=== PATIENT | female | born 1955 | race Caucasian/White ===

== ENCOUNTER 2018-12-28 06:00 | Day surgery (SDC) | payer MEDICARE, OTHER ==
[~2018-12-28] VITALS: Ht 170.2 cm; Wt 131.1 kg
[~2018-12-28 06:00] MED LIST: ACETAMINOPHEN500 MG PO; ATENOLOL25 MG PO; CALCIUM 500 +1 EAC2 PO; CALCIUM CITRAT250 MG PO; CENTRUM SILVER1 EAC3 PO; CLONAZEPAM1 MG PO; GABAPENTIN300 MG PO; HYZAAR 100-12.1 EACH PO; IBUPROFEN200 MG PO; IBUPROFEN800 MG PO; IMODIUM A-D2 M2 PO; LOPERAMIDE2 MG PO; NORCO 5-325 TA1 EACH PO; NYSTATIN15 GM TOP; OSTEO BI-FLEX1 EAC2 PO; PAROXETINE HCL20 MG PO; PAXIL30 MG PO; RISPERIDONE2 MG PO; TYLENOL325 MG PO
--- NOTE | 2018-12-28 08:25 | NUR ---
12/28/18 0829 Phuong Melgar 0856 PT ARRIVED TO PACU ON RA, RESP EVEN AND UNLABORED. PT WAKES EASILY TO VERBAL STIMULI AND DENIES PAIN AND REPORTS SMALL AMOUNT OF NAUSEA. PT RESTING IN LEFT SIDE AND FALLS ASLEEP EASILY. VSS.
--- NOTE | 2018-12-28 10:56 | NUR ---
I HAD JUST A MOMENT WITH PT BEFORE OR STAFF CAME FOR PT. GAVE ENCOURAGEMENT, AND A BLESSING. WILL FOLLLOW NEEDED
--- NOTE | 2018-12-28 12:19 | OR ---
[facility] [address] [place], [place] [address] Signed DATE OF OPERATION: 12/28/2018 SURGEON: Elizabeth Garcias MD PREOPERATIVE DIAGNOSIS: Change in bowel habits with diarrhea. POSTOPERATIVE DIAGNOSES: 1. Bmmb-vz-hxtzggtn diffuse gastritis. 2. Shallow antral gastric ulcer. 3. Tlspt-ur-zvexnvdm-sized hiatal hernia. 4. Minimal sigmoid diverticulosis. PROCEDURES: 1. EGD with CLOtest and biopsies of the duodenum, pyloric bulb, antrum and GE junction. 2. Colonoscopy with cold biopsies of the terminal ileum in the colon. ESTIMATED BLOOD LOSS: None. INDICATIONS: Yelena is a 63-year-old, obese female, asked to see me for upper and lower endoscopy. She has had a change in bowel habits with diarrhea over the last 6 months or so. She said it is at least 2-3 days a week and usually in the mornings. She is not sure what makes it better or worse. She cannot remember if she had a barium enema in the past or a colonoscopy. To her knowledge, there is no family history of colon cancer or polyps. No family history of inflammatory bowel disease. In the office, I gave her pamphlets on both upper and lower endoscopy. We reviewed that with Yelena and her caregiver. They understand the nature of the test along with the risks including, but not limited to gas, bloating, crampy abdominal pain, bleeding, perforation requiring surgery, and missed diagnosis. In addition, because of Yelena's very full face, very thick neck and heavy chest, we asked that an anesthesia provider help us with increased monitoring sedation with propofol. She had expressed understanding and wished to proceed. PROCEDURE NOTE: Yelena was taken into our endoscopy suite and placed in the supine semi-recumbent position. The posterior oropharynx was anesthetized with lidocaine spray. A bite block was utilized for the case. She was given IV sedation with propofol per our nurse pressure control supervisor. The adult gastroscope was then introduced and advanced out into the third portion of the duodenum under direct visualization of the camera without difficulty. Electronically Signed By: ELIZABETH GARCIAS MD 12/28/18 1219 PATIENT NAME: YELENA GLEZ OPERATIVE REPORT DATE OF : 55 REPORT #: [id number] PHYSICIAN: ELIZABETH GARCIAS MD PCP: RIGOBERTO BAE MD REPORT IS CONFIDENTIAL AND NOT TO BE RELEASED WITHOUT AUTHORIZATION [facility] [address] [place], [place] [address] Signed The duodenum and pyloric channel appeared unremarkable. We took a biopsy of the duodenum and the pyloric bulb for pathologic review. However, the stomach showed mild diffuse erythematous changes consistent with mild gastritis. She has just a very small shallow antral ulcer right next to the opening from the antrum into the pyloric polyp. We have taken biopsies from the antrum for pathologic review as well as CLOtest. The incisura, body and fundus of the stomach were unremarkable. Upon retroflexion of scope, she does have a coujg-yd-eqjqjzue-sized hiatal hernia. There were no gastric or esophageal varices. The scope was withdrawn up through the area of the GE junction, which was compliant without stricture. She had minimal disruption to the Z-line. We went ahead and took a biopsy at the edge of the Z-line for pathologic review. There was no Doherty's mucosa. The distal, middle and upper esophagus were unremarkable. After this, the gas was suctioned out and the gastroscope removed. Yelena tolerated procedure quite well. Yelena was then rotated into the left lateral decubitus position. She was maintained on IV sedation with propofol per our nurse pressure control supervisor. A digital rectal exam was performed and this was unremarkable. The adult colonoscope was introduced and advanced all around into the cecum under direct visualization of camera without difficulty. Her prep was good. We could easily see the appendiceal orifice and the ileocecal valve. We turned the camera and went up into the terminal ileum probably 15 cm. It looked quite healthy to us. We took several biopsies of the terminal ileum for pathologic review. We had taken pictures throughout for photodocumentation. The scope was then slowly withdrawn. We took several random biopsies throughout the colon for pathologic review. However, there were no inflammatory changes visibly noted. She did have just a few sigmoid diverticula. They were moderate in size, few in number, and scattered about. The rectum was unremarkable. Upon retroflexion of the scope, there was no additional pathology noted above the anal canal. After this, the gas was suctioned out and colonoscope removed. Yelena tolerated procedure quite well. RECOMMENDATIONS: I will see Yelena back in my office in 7 to 14 days to review her results. MD ANAT Haro/KODYL /[id number] Electronically Signed By: ELIZABETH GARCIAS MD 12/28/18 1219 PATIENT NAME: YELENA GLEZ [facility] OPERATIVE REPORT DATE OF : 55 REPORT #: [id number] PHYSICIAN: ELIZABETH GARCIAS MD PCP: RIGOBERTO BAE MD REPORT IS CONFIDENTIAL AND NOT TO BE RELEASED WITHOUT AUTHORIZATION [facility] [address] [place], [place] [address] Signed cc: MD Elizabeth Menchaca MD Copies: RIGOBERTO BAE DMD, ANDREW L MD ~ Electronically Signed By: ELIZABETH GARCIAS MD 12/28/18 1219 PATIENT NAME: YELENA GLEZ OPERATIVE REPORT DATE OF : 55 REPORT #: [id number] PHYSICIAN: ELIZABETH GARCIAS MD PCP: RIGOBERTO BAE MD REPORT IS CONFIDENTIAL AND NOT TO BE RELEASED WITHOUT AUTHORIZATION
--- NOTE | 2018-12-29 15:32 | PATH ---
[facility] [address] [place], [place] [address] Signed SPECIMEN(S): A DUODENUM NOS SPECIMEN(S): B DUODENUM BULB SPECIMEN(S): C AMTRUM/PYLORUS SPECIMEN(S): D GE JUNCTION SPECIMEN(S): E TERMINAL ILEUM SPECIMEN(S): F COLON SPECIMEN SOURCE: A. DUODENUM NOS B. DUODENUM BULB C. AMTRUM/PYLORUS D. GE JUNCTION E. TERMINAL ILEUM F. COLON CLINICAL HISTORY: Diarrhea. MICROSCOPIC DESCRIPTION: Histologic sections of all submitted blocks are examined by light microscopy. These findings, together with the gross examination, support the pathologic diagnosis. D. Sections reveal a biopsy of esophageal mucosa composed of both glandular and squamous mucosa. Squamous mucosa has a prominent basal cell layer and elongated rete ridges. A rare intraepithelial lymphocyte is seen. Intraepithelial eosinophils are not a feature. Glandular mucosa has an intact surface and has retained mucus-secreting ability. The lamina propria is mildly expanded by a population of plasma cells, lymphocytes and infrequent eosinophils. No acute inflammatory cells or goblet cells are seen. There is no evidence of malignancy or atypia. F. Sections reveal biopsies of colonic mucosa. The epithelial surface is intact and has retained mucus-secreting ability. The basement membrane is not thickened. Glands are simple and tubular and reach all the way to the muscularis mucosae. The lamina propria is not expanded and contains a few plasma cells, lymphocytes and infrequent eosinophils. No acute inflammatory cells, excess intraepithelial lymphocytes, crypt abscesses, areas of fibrosis or granulomas are seen. There is no evidence of malignancy or atypia. LJA:glc PATIENT NAME: JASEN GLEZ PATHOLOGY DATE OF : 55 REPORT #: [id number] PHYSICIAN: BRANDON ISABEL PCP: RIGOBERTO BAE MD REPORT IS CONFIDENTIAL AND NOT TO BE RELEASED WITHOUT AUTHORIZATION [facility] [address] [place], [place] [address] Signed FINAL PATHOLOGIC DIAGNOSIS: A. Mucosa, duodenum, not otherwise specified, biopsy: - Duodenal mucosa with normal villous architecture, no microscopic pathologic diagnosis. B. Mucosa, duodenal bulb, biopsy: - Duodenal mucosa with normal villous architecture; no microscopic pathologic diagnosis. C. Mucosa, antrum, biopsy: - Mild inactive chronic gastritis. - Negative for the presence of bacteria, morphologically consistent with Helicobacter on HE stained sections (see Comment). D. Mucosa, gastroesophageal junction, biopsy: - Mild chronic esophagitis with features consistent with reflux. E. Mucosa, terminal ileum, biopsy: - Small intestinal mucosa with normal villous architecture; no microscopic pathologic diagnosis. F. Mucosa, colon, biopsy: - No microscopic pathologic diagnosis. COMMENT: The patient had a JACOBY test performed reported as negative in the [facility] database. LJA:glc:C2NR GROSS DESCRIPTION: Six specimens are received in six containers, labeled "JK." A. The specimen, labeled "JK, duodenal biopsy," is received in formalin and consists of a single 0.2 cm bryson-brown tissue fragment. Specimen is entirely submitted in cassette (A1). B. The specimen, labeled "JK, duodenal bulb biopsy," is received in formalin and consists of a single 0.3 cm bryson tissue fragment. Specimen is entirely submitted in cassette (B1). C. The specimen, labeled "JK, antrum biopsy," is received in formalin and consists of a single 0.3 cm bryson-brown tissue fragment. Specimen is entirely submitted in cassette (C1). D. The specimen, labeled "JK, GE junction biopsy," is received in formalin and consists of a single 0.3 cm bryson tissue fragment. Specimen is entirely submitted in cassette (D1). E. The specimen, labeled "JK, terminal ileum biopsy," is received in formalin and consists of two, 0.4 and 0.5 cm bryson tissue fragment. Specimen is entirely submitted in cassette (E1). PATIENT NAME: JASEN GLEZ PATHOLOGY DATE OF : 55 REPORT #: [id number] PHYSICIAN: BRANDON ISABEL PCP: RIGOBERTO BAE MD REPORT IS CONFIDENTIAL AND NOT TO BE RELEASED WITHOUT AUTHORIZATION [facility] [address] [place], [place] [address] Signed F. The specimen, labeled "JK, colon biopsy," is received in formalin and consists of three, 0.2-0.3 cm bryson tissue fragments. Specimen is entirely submitted in cassette (F1). AM (under the direct supervision of a pathologist) The Gross Description was prepared using a voice recognition system. The report was reviewed for accuracy; however, sound-alike word errors, addition and/or deletions may occur. If there is any question about this report, please contact Client Services. PERFORMING LABORATORY: The technical component was performed by [facility], [address] [place] [id number] (Wet Process Operator: Kasey Sanon MD; CLIA# [id number]). Professional interpretation was performed by [facility], [facility], [address] [address] (Wet Process Operator: Thor Durbin MD; CLIA# [id number]). Diagnostician: Thor Durbin MD Pathologist Electronically Signed 12/29/2018 Copies: ~ PATIENT NAME: JASEN GLEZ PATHOLOGY DATE OF : 55 REPORT #: [id number] PHYSICIAN: [facility] PCP: RIGOBERTO BAE MD REPORT IS CONFIDENTIAL AND NOT TO BE RELEASED WITHOUT AUTHORIZATION
== END 2018-12-28 09:04 | disposition home or self-care (01) ==
LOC: OPS 06:00 → DS 06:00
PROVIDERS: Colon & Rectal Surgery
PROC: 0DB48ZX Excision of Esophagogastric Junction, Via Natural or Artificial Opening Endoscopic, Diagnostic (ICD-10-PCS; 2018-12-28)
PROC: 0DBB8ZX Excision of Ileum, Via Natural or Artificial Opening Endoscopic, Diagnostic (ICD-10-PCS; 2018-12-28)
PROC: 0DBE8ZX Excision of Large Intestine, Via Natural or Artificial Opening Endoscopic, Diagnostic (ICD-10-PCS; 2018-12-28)
PROC: 0DB98ZX Excision of Duodenum, Via Natural or Artificial Opening Endoscopic, Diagnostic (ICD-10-PCS; principal; 2018-12-28 06:45)
PROC: 0DB78ZX Excision of Stomach, Pylorus, Via Natural or Artificial Opening Endoscopic, Diagnostic (ICD-10-PCS; 2018-12-28 06:45)
DX: K29.50 Unspecified chronic gastritis without bleeding (principal); K25.9 Gastric ulcer, unspecified as acute or chronic, without hemorrhage or perforation; K44.9 Diaphragmatic hernia without obstruction or gangrene; K57.30 Diverticulosis of large intestine without perforation or abscess without bleeding; K20.9 Esophagitis, unspecified; Z79.899 Other long term (current) drug therapy; Z88.8 Allergy status to other drugs, medicaments and biological substances
CPT/HCPCS: 86677; 88305; J2704